=== PATIENT | female | born 1970 | race Caucasian/White ===

== ENCOUNTER → 2017-06-05 | Outpatient (CLI) | payer OTHER | LOC: CIMAGING 07:35 | PROVIDERS: ATTEND Family Medicine | DX: Z12.31 Encounter for screening mammogram for malignant neoplasm of breast (principal) | CPT/HCPCS: G0202 ==

== ENCOUNTER → 2017-06-09 | Outpatient (CLI) | payer OTHER | LOC: BRMIMAGING 09:41 | PROVIDERS: ATTEND Family Medicine | DX: Z12.39 Encounter for other screening for malignant neoplasm of breast (principal); R92.8 Other abnormal and inconclusive findings on diagnostic imaging of breast | CPT/HCPCS: 76641-PO; G0206 ==

== ENCOUNTER → 2017-10-03 | Outpatient (CLI) | payer OTHER | LOC: BRMIMAGING 15:46 | PROVIDERS: ATTEND Internal Medicine | DX: M15.4 Erosive (osteo)arthritis (principal); M85.871 Other specified disorders of bone density and structure, right ankle and foot; M85.872 Other specified disorders of bone density and structure, left ankle and foot; M17.11 Unilateral primary osteoarthritis, right knee; M22.8X2 Other disorders of patella, left knee | CPT/HCPCS: 73130-PO; 73562-PO; 73630-PO ==

== ENCOUNTER → 2018-07-02 | Outpatient (CLI) | payer OTHER | LOC: CIMAGING 07:46 | PROVIDERS: ATTEND Family Medicine | DX: Z12.31 Encounter for screening mammogram for malignant neoplasm of breast (principal) ==